=== PATIENT | female | born 1955 | race Caucasian/White ===

== ENCOUNTER 2017-11-14 07:56 | Emergency (ER) | payer OTHER ==
[~2017-11-14] VITALS: Ht 157.5 cm; Wt 70.0 kg
[2017-11-14] MEDS ORDERED: SODIUM CHLORIDE 0.9% 1,000 ML IV ONE (08:51)
[2017-11-14] MEDS ORDERED: MORPHINE SULFATE 4 MG/ML CPJ (NOT FOR IM USE) IV STA (08:51)
[2017-11-14] MEDS ORDERED: KETOROLAC 30MG/ML VIAL IV STA (08:51)
[2017-11-14] MEDS ORDERED: ONDANSETRON HCL 4MG/2ML VIAL IV STA (08:51)
[2017-11-14 09:16] LABS: BASOPHILS % 0.9 % (0.0-2.0); EOSINOPHILS % 3.8 % (0.0-5.0); HEMATOCRIT. 35.5 % (36.0-48.0); HEMOGLOBIN. 12.2 g/dL (12.0-16.0); LYMPHOCYTES % 33.4 % (20.0-50.0); MEAN CORPUSCULAR HEMOGLOBIN 28.6 pg (28.0-32.0); MEAN CORPUSCULAR VOLUME 82.9 fL (81.0-99.0); MEAN PLATELET VOLUME 9.4 fl (7.4-10.4); NEUTROPHILS % 54.9 % (40.0-76.0); PLATELET 318 x1000/uL (130-400); RED BLOOD CELL COUNT 4.28 mill/uL (4.2-5.4); RED CELL DISTRIBUTION WIDTH 13.3 % (11.6-14.6)
[2017-11-14 09:18] LABS: CLARITY URINE CLOUDY (CLEAR); COLOR URINE DARK YELLOW (YELLOW); KETONES URINE TRACE (NEGATIVE); LEUKOCYTE ESTERASE URINE 1+ (NEGATIVE); NITRITE URINE NEGATIVE (NEGATIVE); OCCULT BLOOD URINE NEGATIVE (NEGATIVE); PROTEIN URINE TRACE (NEGATIVE); SPECIFIC GRAVITY URINE 1.027 (1.005-1.030); UROBILINOGEN URINE 0.2 E.U./dL (0.2-1.0)
[2017-11-14 09:29] LABS: D-DIMER 0.38 mg/L FEU (<0.50); PROTHROMBIN TIME 10.3 sec (9.4-11.6)
[2017-11-14 10:22] LABS: CHLORIDE 109 mEq/L (98-107)
[2017-11-14] MEDS ORDERED: ASPIRIN 325MG EC TABLET PO ONE (12:45)
[2017-11-14] MEDS ORDERED: FAMOTIDINE 20MG TABLET PO ONE (13:00)
[2017-11-14] MEDS ORDERED: MAGNESIUM/ALUMINUM HYDROXIDE/SIMETHICONE 30ML UDC PO ONE (13:00)
[2017-11-14] MEDS ORDERED: HYDROCODONE/ACETAMINOPHEN 5/325MG TABLET PO ONE (13:00)
[2017-11-14 14:00] VITALS: BP 136/79
== END 2017-11-14 14:05 | disposition home or self-care (01) ==
LOC: ER 09:23 → CANBEDREQ 13:55 → ER 14:05
DX: R07.89 Other chest pain (principal); N39.0 Urinary tract infection, site not specified; K44.9 Diaphragmatic hernia without obstruction or gangrene; E11.9 Type 2 diabetes mellitus without complications; I10 Essential (primary) hypertension; F17.210 Nicotine dependence, cigarettes, uncomplicated; R94.31 Abnormal electrocardiogram [ECG] [EKG]; Z71.6 Tobacco abuse counseling; Z90.710 Acquired absence of both cervix and uterus; Z90.49 Acquired absence of other specified parts of digestive tract
CPT/HCPCS: 36415; 71045; 74176; 80053; 81003; 81025; 83690; 83880; 84484; 85025; 85379; 85610; 93005; 96361; 96374; 96375; 99285; 99406; J1885; J2270; J2405; J7030; Z7610

== ENCOUNTER 2018-03-20 06:11 | Inpatient (IN) | payer OTHER ==
[~2018-03-20] VITALS: Ht 157.5 cm; Wt 71.2 kg
[2018-03-20] MEDS ORDERED: ASPIRIN 325MG TABLET PO ONE (07:00)
[2018-03-20] MEDS: NITROGLYCERIN 0.4MG TABLET SL SL PRN ×2 (07:10→07:16)
[2018-03-20 07:41] LABS: BASOPHILS % 0.6 % (0.0-2.0); EOSINOPHILS % 0.5 % (0.0-5.0); HEMATOCRIT. 33.7 % (36.0-48.0); HEMOGLOBIN. 11.5 g/dL (12.0-16.0); LYMPHOCYTES % 23.9 % (20.0-50.0); MEAN CORPUSCULAR HEMOGLOBIN 29.3 pg (28.0-32.0); MEAN CORPUSCULAR VOLUME 85.4 fL (81.0-99.0); MEAN PLATELET VOLUME 9.2 fl (7.4-10.4); MONOCYTES % 5.8 % (2.0-8.0); NEUTROPHILS % 69.2 % (40.0-76.0); PLATELET 363 x1000/uL (130-400); RED BLOOD CELL COUNT 3.94 mill/uL (4.2-5.4); RED CELL DISTRIBUTION WIDTH 13.8 % (11.6-14.6)
[2018-03-20 07:45] LABS: CHLORIDE 106 mEq/L (98-107)
[2018-03-20] MEDS ORDERED: IOHEXOL-350 100 ML BOTTLE ONE (09:26)
[2018-03-20] MEDS ORDERED: ENOXAPARIN 80MG/0.8ML SYR SUBCUT ONE (09:45)
[2018-03-20] MEDS ORDERED: ACETAMINOPHEN 325MG TABLET PO PRN (10:00)
[2018-03-20] MEDS ORDERED: MAGNESIUM/ALUMINUM HYDROXIDE/SIMETHICONE 30ML UDC PO PRN (10:00)
[2018-03-20] MEDS ORDERED: DOCUSATE SODIUM 100MG CAPSULE PO PRN (10:00)
[2018-03-20] MEDS ORDERED: NITROGLYCERIN 0.4MG TABLET SL SL PRN (10:00)
[2018-03-20] MEDS ORDERED: CLONIDINE 0.1MG TABLET PO PRN (10:00)
[2018-03-20] MEDS ORDERED: GUAIFENESIN 200MG/10ML SUGAR FREE UDC PO PRN (10:00)
[2018-03-20] MEDS ORDERED: NA PHOS,M-B/NA PHOS,DI-BA ENEMA 118ML PR PRN (10:00)
[2018-03-20] MEDS ORDERED: IPRATROPIUM/ALBUTEROL 0.5-3(2.5)MG/3ML NEB INH PRN (10:00)
[2018-03-20] MEDS ORDERED: ONDANSETRON HCL 4MG/2ML INJ IV PRN (10:00)
[2018-03-20 11:45] LABS: *AMPHETAMINES SCREEN URINE NEGATIVE (NEGATIVE); *BARBITURATES SCREEN URINE NEGATIVE (NEGATIVE); *BENZODIAZEPINES SCREEN URINE NEGATIVE (NEGATIVE); *COCAINE SCREEN URINE NEGATIVE (NEGATIVE); METHADONE URINE SCREEN NEGATIVE (NEGATIVE); OPIATES URINE SCREEN NEGATIVE (NEGATIVE)
[2018-03-20 11:46] LABS: CANNABINOID URINE SCREEN NEGATIVE (NEGATIVE); PHENCYCLIDINE URINE SCREEN NEGATIVE (NEGATIVE)
[2018-03-20 12:40] VITALS: BP 136/72
[2018-03-20] MEDS ORDERED: SITA100T11 MT (14:22)
[2018-03-20] MEDS ORDERED: FENO134C MT (14:22)
[2018-03-20] MEDS ORDERED: INSU100I28 SQ (14:22)
[2018-03-20] MEDS ORDERED: METF10004 MT (14:22)
[2018-03-20] MEDS ORDERED: TRIA1TAB92 MT (14:22)
[2018-03-20] MEDS ORDERED: FLUO-123 MT (14:22)
[2018-03-20] MEDS ORDERED: DEXTROSE 50% WATER 50ML SYRINGE IV PRN (14:45)
[2018-03-20] MEDS: TRAMADOL 50MG TABLET PO PRN ×2 (14:49→20:55)
[2018-03-20 15:20] LABS: CREATINE KINASE 78 IU/L (26-192)
[2018-03-20 15:21] LABS: CREATINE KINASE MB FRACTION 1.2 ng/mL (0.5-3.6)
[2018-03-20 16:00] VITALS: BP 135/74
[2018-03-20] MEDS: BLOOD SUGAR DIAGNOSTIC STRIP TEST SCH ×2 (16:53→20:59)
[2018-03-20] MEDS: INSULIN LISPRO 100 UNITS/ML SUBCUT SCH ×2 (16:57→21:14)
[2018-03-20 20:40] VITALS: BP 116/48
[2018-03-20] MEDS: ZOLPIDEM TARTRATE 5MG TABLET PO PRN (20:54)
[2018-03-20] MEDS: METOPROLOL TARTRATE 25MG TABLET PO SCH (20:54)
[2018-03-20] MEDS: ATORVASTATIN CALCIUM 10MG TABLET PO SCH (20:54)
[2018-03-20] MEDS: ENOXAPARIN 80MG/0.8ML SYR SUBCUT SCH (20:56)
[2018-03-20 23:27] LABS: CREATINE KINASE 81 IU/L (26-192)
[2018-03-20 23:28] LABS: CREATINE KINASE MB FRACTION 1.1 ng/mL (0.5-3.6)
[2018-03-21] VITALS: BP 121/75
[2018-03-21 04:00] VITALS: BP 126/66
[2018-03-21] MEDS: INSULIN LISPRO 100 UNITS/ML SUBCUT SCH ×4 (06:18→20:42)
[2018-03-21] MEDS: BLOOD SUGAR DIAGNOSTIC STRIP TEST SCH ×4 (06:18→20:35)
[2018-03-21 08:00] VITALS: BP 116/65
[2018-03-21] MEDS: METOPROLOL TARTRATE 25MG TABLET PO SCH ×2 (09:47→20:35)
[2018-03-21] MEDS: ASPIRIN 325MG EC TABLET PO SCH (09:47)
[2018-03-21] MEDS: ENOXAPARIN 80MG/0.8ML SYR SUBCUT SCH ×2 (09:48→20:36)
[2018-03-21 12:00] VITALS: BP 119/55
[2018-03-21 16:00] VITALS: BP 106/49
[2018-03-21] MEDS: TRAMADOL 50MG TABLET PO PRN (19:40)
[2018-03-21 20:00] VITALS: BP 121/59
[2018-03-21] MEDS: ATORVASTATIN CALCIUM 10MG TABLET PO SCH (20:35)
[2018-03-21] MEDS: ZOLPIDEM TARTRATE 5MG TABLET PO PRN (21:31)
[2018-03-22] VITALS: BP 129/55
[2018-03-22 04:00] VITALS: BP 119/62
[2018-03-22] MEDS: INSULIN LISPRO 100 UNITS/ML SUBCUT SCH ×2 (06:25→11:21)
[2018-03-22] MEDS: BLOOD SUGAR DIAGNOSTIC STRIP TEST SCH ×2 (06:25→11:14)
[2018-03-22 07:24] LABS: BASOPHILS % 1.2 % (0.0-2.0); HEMATOCRIT. 34.6 % (36.0-48.0); HEMOGLOBIN. 11.9 g/dL (12.0-16.0); LYMPHOCYTES % 38.3 % (20.0-50.0); MEAN CORPUSCULAR HEMOGLOBIN 29.4 pg (28.0-32.0); MEAN CORPUSCULAR VOLUME 85.8 fL (81.0-99.0); MEAN PLATELET VOLUME 9.4 fl (7.4-10.4); MONOCYTES % 7.4 % (2.0-8.0); NEUTROPHILS % 48.1 % (40.0-76.0); PLATELET 324 x1000/uL (130-400); RED BLOOD CELL COUNT 4.04 mill/uL (4.2-5.4); RED CELL DISTRIBUTION WIDTH 13.5 % (11.6-14.6)
[2018-03-22 07:58] VITALS: BP 132/57
[2018-03-22 08:00] LABS: CHLORIDE 106 mEq/L (98-107)
[2018-03-22] MEDS: METOPROLOL TARTRATE 25MG TABLET PO SCH (08:00)
[2018-03-22] MEDS: ENOXAPARIN 80MG/0.8ML SYR SUBCUT SCH (08:59)
[2018-03-22] MEDS: ASPIRIN 325MG EC TABLET PO SCH (08:59)
[2018-03-22 12:00] VITALS: BP 116/59
[2018-03-22 14:12] VITALS: BP 116/59
== END 2018-03-22 15:30 | disposition home or self-care (01) | DRG 176 ==
LOC: ER 06:38 → 8WST 08:19 → EDBEDREQ 08:23 → EDBEDREQTM 08:23 → ENRESERV 11:56
PROVIDERS: ADMIT Internal Medicine; ATTEND Internal Medicine
DX: I26.99 Other pulmonary embolism without acute cor pulmonale (principal); E11.9 Type 2 diabetes mellitus without complications; E78.5 Hyperlipidemia, unspecified; Z90.49 Acquired absence of other specified parts of digestive tract; E78.00 Pure hypercholesterolemia, unspecified; F17.210 Nicotine dependence, cigarettes, uncomplicated; I11.9 Hypertensive heart disease without heart failure; Z79.4 Long term (current) use of insulin; Z79.82 Long term (current) use of aspirin; Z79.899 Other long term (current) drug therapy; Z90.710 Acquired absence of both cervix and uterus
CPT/HCPCS: 36415; 70551; 71045; 71275; 73502; 80048; 80053; 80061; 80305; 82550; 82553; 82962; 83036; 83880; 84484; 85025; 85379; 93005; 93306; 93970; 96372; 99291; J1650; J1815; Q9967

== ENCOUNTER 2021-05-10 20:05 | Emergency (ER) | payer OTHER ==
[~2021-05-10] VITALS: Ht 167.6 cm; Wt 75.0 kg
[~2021-05-10 20:05] MED LIST: ASPI-1406 PO; FENO134C MT; FLUO10CA28 MT; INSU100I28 SQ; METF-416 MT; SITA100T11 MT; TRIA1TAB92 MT
[2021-05-10] MEDS ORDERED: ONDANSETRON HCL 4MG/2ML INJ IV STA (21:25)
[2021-05-10] MEDS ORDERED: MORPHINE SULFATE 4 MG/ML CPJ (NOT FOR IM USE) IV STA (21:25)
[2021-05-10] MEDS ORDERED: ENALAPRIL 1.25MG/ML VIAL 1ML IV ONE (21:30)
[2021-05-10 22:28] LABS: BASOPHILS % 0.6 % (0.0-2.0); EOSINOPHILS % 0.7 % (0.0-5.0); HEMATOCRIT. 35.4 % (36.0-48.0); HEMOGLOBIN. 11.9 g/dL (12.0-16.0); LYMPHOCYTES % 23.8 % (20.0-50.0); MEAN CORPUSCULAR HEMOGLOBIN 28.4 pg (28.0-32.0); MEAN CORPUSCULAR VOLUME 84.9 fL (81.0-99.0); MONOCYTES % 5.8 % (2.0-8.0); NEUTROPHILS % 69.1 % (40.0-76.0); PLATELET 312 x1000/uL (130-400); RED BLOOD CELL COUNT 4.18 mill/uL (4.2-5.4); RED CELL DISTRIBUTION WIDTH 13.3 % (11.6-14.6)
[2021-05-10 22:30] LABS: CHLORIDE 102 mEq/L (98-107)
[2021-05-11] MEDS ORDERED: KETOROLAC 15MG/ML VIAL IV ONE (00:30)
[2021-05-11 01:30] VITALS: BP 103/63
== END 2021-05-11 01:39 | disposition short-term general hospital (02) ==
LOC: ER 20:05
DX: R07.89 Other chest pain (principal); I16.0 Hypertensive urgency; R51.9 Headache, unspecified; E11.9 Type 2 diabetes mellitus without complications; I10 Essential (primary) hypertension; Z90.49 Acquired absence of other specified parts of digestive tract; Z90.710 Acquired absence of both cervix and uterus; Z79.899 Other long term (current) drug therapy
CPT/HCPCS: 36415; 71045; 80053; 84484; 85025; 93005; 96374; 96375; 99291; J1885; J2270; J2405; J3490